=== PATIENT | female | born 1965 | race Native Hawaiian/Other Pacific Islander ===

== ENCOUNTER 2020-05-20 17:19 | Emergency (ER) | payer MEDICARE, SELFPAY ==
--- NOTE | ~2020-05-20 | US_ITS ---
EXAMINATION: US venous doppler [facility] DATE: 05/20/2020 18:05 INDICATION: Bilateral lower limb swelling TECHNIQUE: Villegas scale images without and with compression and Doppler images of the bilateral lower e xtremity veins were obtained. COMPARISON: None FINDINGS: The right common femoral vein, profunda femoral vein, femoral vein, popliteal vein, peroneal trunk, p osterior tibial veins, and greater saphenous vein are patent. The left common femoral vein, profunda femoral vein, femoral vein, popliteal vein, peroneal trunk, po sterior tibial veins, and greater saphenous vein are patent. IMPRESSION: 1. Patent bilateral lower extremity veins. No evidence of deep venous thrombosis. Reviewed, dictated and finalized at location A. IMPRESSION: 1. Patent bilateral lower extremity veins. No evidence of deep venous thrombosi s.
--- NOTE | ~2020-05-20 | XR_ITS ---
EXAMINATION: XR chest 1V portable INDICATION: Bilateral lower limb swelling TECHNIQUE: Portable AP chest at 1815 hours COMPARISON: None available FINDINGS: The lungs are free of acute opacities. There is no pleural effusion or pneumothorax. The ca rdiomediastinal silhouette is normal. IMPRESSION: 1. No acute cardiopulmonary abnormality. Reviewed, dictated and finalized at location A.
[2020-05-20 17:29] VITALS: BP 132/94; PULSE 86; RESP 16; TEMP 36.6; O2SAT 97
--- NOTE | 2020-05-20 17:45 | ECG_ITS ---
Measurements Intervals Given Rate: 77 P: 32 MA: 180 QRS: 4 QRSD: 82 T: 9 QT: 399 QTc: 452 Interpretive Statements SINUS RHYTHM LOW QRS VOLTAGE IN PRECORDIAL LEADS BASELINE ARTIFACT- I, II, III, AVF, V4-V6 BORDERLINE ECG Electronically Signed On 05-22-2020 8:04:32 CDT by Tobias Quiroz D.O.
--- NOTE | 2020-05-20 17:50 | ED.GENADULT ---
HPI - General Adult General Chief complaint: Unspecified <Shakir Salvador PA-C - Last Filed: 05/20/20 18:50> Stated complaint: swelling to feet <Shakir Salvador PA-C - Last Filed: 05/20/20 18:50> Time Seen by Provider: 05/20/20 17:30 <Shakir Salvador PA-C - Last Filed: 05/20/20 18:50> Source: patient <Shakir Salvador PA-C - Last Filed: 05/20/20 18:50> Mode of arrival: ambulatory <Shakir Salvador PA-C - Last Filed: 05/20/20 18:50> Limitations: no limitations <Shakir Salvador PA-C - Last Filed: 05/20/20 18:50> History of Present Illness HPI narrative: Patient is a 54-year-old female who presents to emergency department for evaluation of bilateral foot swelling over the last several days noting pressure in the feet denying pain denies similar occurrence in the past patient recently arrived from out of state visiting a friend on Sunday patient denies any fever chills nausea vomiting URI symptoms. Patient on arrival resting comfortably in the room in no distress. <Shakir Salvador PA-C - Last Filed: 05/20/20 18:50> Related Data Home medications: Home Medications Medication Instructions Recorded Confirmed Zyrtec 05/20/20 05/20/20 amlodipine 05/20/20 carvedilol 05/20/20 levothyroxine 05/20/20 pantoprazole 05/20/20 trazodone 05/20/20 venlafaxine 05/20/20 <Shakir Salvador PA-C - Last Filed: 05/20/20 18:50> Review of Systems Review of Systems: All systems reviewed & are unremarkable except as noted in HPI and below <Shakir Salvador PA-C - Last Filed: 05/20/20 18:50> [facility] Past Medical History Medical History: Medical History (Updated 05/20/20 @ 18:50 by Shakir Salvador PA-C) Gastroesophageal reflux disease Hypertension Hypothyroidism <Shakir Salvador PA-C - Last Filed: 05/20/20 18:50> Social History Social History: Social History (Updated 05/20/20 @ 17:51 by Shakir Salvador PA-C) Smoking status: Never smoker <Shakir Salvador PA-C - Last Filed: 05/20/20 18:50> Exam Narrative: Exam Narrative: GENERAL: Well-appearing, well-nourished, and in no acute distress. HEAD: Normocephalic, atraumatic. EYES: PERRLA and EOMI. ENT: Nares clear, no rhinorrhea or epistaxis. Mucous membranes moist. NECK: Supple. No adenopathy or masses. No carotid bruits or JVD CHEST: Clear to auscultation. No respiratory distress. No wheezes rales or rhonchi HEART: Regular rate and rhythm. No murmur heard. Normal peripheral pulses. ABDOMEN: Soft, nontender, nondistended EXTREMITIES: Normal range of motion. 2+ edema to the bilateral feet dorsal surface SKIN: Warm, dry, no rash. NEURO: No focal deficits. Alert and oriented x3. Cranial nerves II through XII grossly intact. neurovascularly intact. PSYCH: Normal mood and affect. <Shakir Salvador PA-C - Last Filed: 05/20/20 18:50> Course Course Emergency Course: Patient in the room in no distress aware of case findings treatment plan and diagnosis agreeing to follow-up as directed <Shakir Salvador PA-C - Last Filed: 05/20/20 18:50> Vital Signs Vital signs: Vital Signs Temperature 98 F 05/20/20 17:29 Pulse Rate 86 05/20/20 17:29 Respiratory Rate 16 05/20/20 17:29 Blood Pressure 132/94 H 05/20/20 17:29 Pulse Oximetry 97 05/20/20 17:29 Temperature 98.2 F 05/20/20 19:04 Pulse Rate 79 05/20/20 19:04 Respiratory Rate 18 05/20/20 19:04 Blood Pressure 118/81 05/20/20 19:04 Pulse Oximetry 100 05/20/20 19:04 <Shakir Salvador PA-C - Last Filed: 05/20/20 18:50> Vital Signs Temperature 98 F 05/20/20 17:29 Pulse Rate 86 05/20/20 17:29 Respiratory Rate 16 05/20/20 17:29 Blood Pressure 132/94 H 05/20/20 17:29 Pulse Oximetry 97 05/20/20 17:29 Temperature 98.2 F 05/20/20 19:04 Pulse Rate 79 05/20/20 19:04 Respiratory Rate 18 05/20/20 19:04 Blood Pressure 118/81 05/20/20 19:04 Pulse Oximetry 100 07
[2020-05-20 17:56] LABS: Basophils Absolute Auto 0.1 K/mm3 (0.0-0.1); Basophils Percent Auto 1.3 % (0.2-1.2); Eosinophils Absolute Auto 0.6 K/mm3 (0-0.3); Eosinophils Percent Auto 9.4 % (0-4.4); Hematocrit 35.5 % (37.0-47.0); Hemoglobin 11.4 g/dL (12.0-15.0); Immature Granulocyte Absolute 0.02 K/mm3 (0.00-0.031); Immature Granulocyte Percent A 0.3 % (0-0.5); Lymphocytes Absolute Auto 1.36 K/mm3 (0.9-3.2); Lymphocytes Percent Auto 20.3 % (18.3-44.2); Mean Corpuscular HGB Conc 32.1 g/dl (32-36); Mean Corpuscular Hemoglobin 26.9 pg (26-34); Mean Corpuscular Volume 83.7 fl (80-100); Mean Platelet Volume 8.1 fl (7.4-10.4); Monocytes Absolute Auto 0.7 K/mm3 (0.1-0.6); Monocytes Percent Auto 10.3 % (2.6-8.5); Neutrophils Absolute Auto 3.9 K/mm3 (1.3-6.7); Neutrophils Percent Auto 58.4 % (45.5-73.1); Platelet Count Result 364 k/mm3 (150-375); Red Blood Count 4.24 M/mm3 (4.2-5.4); Red Cell Distribution Width 13.9 % (11.5-14.5); White Blood Count 6.7 K/mm3 (4.5-10.0)
[2020-05-20 18:07] LABS: Partial Thromboplastin Time 31.3 SECONDS (22.3-36.8)
[2020-05-20 18:08] LABS: Alanine Aminotransferase 30 U/L (4-35); Albumin Level 4.4 g/dL (3.5-5.1); Alkaline Phosphatase 81 U/L (38-126); Aspartate Amino Transferase 35 U/L (14-36); Bilirubin,Total 0.5 mg/dL (0.2-1.3); Blood Urea Nitrogen 14 mg/dL (7-17); Carbon Dioxide 27 mmol/L (22-30); Chloride 104 mmol/L (98-107); Estimated CRCL calculation 50 ml/min; Estimated Glomerular Filt Rate > 60; Glucose 108 mg/dL (65-105); Magnesium 2.1 mg/dL (1.6-2.3); Sodium 139 mmol/L (137-145)
[2020-05-20 18:20] LABS: NT Pro B Type Natriuretic Pept 352 PG/ML (5-100); Troponin I < 0.012 ng/mL (0.000-0.034)
[2020-05-20 19:04] VITALS: BP 118/81; PULSE 79; RESP 18; TEMP 36.8; O2SAT 100
== END 2020-05-20 19:09 | disposition home or self-care (01) ==
PROVIDERS: Emergency Medicine Emergency Medical Services; Emergency Provider General Practice
DX: R60.0 Localized edema (principal); K21.9 Gastro-esophageal reflux disease without esophagitis; I10 Essential (primary) hypertension; E03.9 Hypothyroidism, unspecified; R94.31 Abnormal electrocardiogram [ECG] [EKG]
CPT/HCPCS: 36415; 71045; 80053; 83735; 83880; 84484; 85025; 85610; 85730; 93005; 93970; 99284